=== PATIENT | male | born 1985 | race Caucasian/White ===

== ENCOUNTER 2016-10-08 16:57 | Emergency (ER) | payer MEDICAID ==
[~2016-10-08] VITALS: Ht 167.6 cm; Wt 60.0 kg
[~2016-10-08 16:57] MED LIST: BENZ100C70 PO; CEPH-443 PO; IBUP-1542 PO; KENC1 TOP; LORA10TA3 PO
[2016-10-08 17:08] VITALS: Ht 167.6 cm; Wt 60.0 kg
[2016-10-08 17:53] LABS: ADD SCAN DIFF NO
[2016-10-08 17:59] LABS: BASOPHILS % 0.4 % (0.0-2.0); EOSINOPHILS # 0.1 10^3/ul (0.0-0.5); EOSINOPHILS % 1.8 % (0.0-7.0); HEMATOCRIT 40.6 % (42.0-52.0); HEMOGLOBIN 13.6 g/dl (14.0-18.0); LYMPHOCYTES % 36.7 % (15.0-51.0); MEAN CORPUSCULAR HGB CONC 33.5 g/dl (32.0-37.0); MEAN CORPUSCULAR VOLUME 89.6 fl (82.0-101.0); MEAN PLATELET VOLUME 10.4 fl (7.4-10.4); MONOCYTE # 0.4 10^3/ul (0.3-0.9); MONOCYTES % 7.8 % (0.0-11.0); NEUTROPHIL # 2.9 10^3/ul (1.6-7.5); NEUTROPHILS % 53.1 % (39.0-77.0); PLATELET COUNT 255 10^3/UL (140-415); RED BLOOD COUNT 4.53 10^6/ul (4.70-6.10); RED CELL DISTRIBUTION WIDTH 12.5 % (11.5-14.5); WHITE BLOOD COUNT 5.5 10^3/ul (4.8-10.8)
[2016-10-08 18:18] LABS: CALCIUM 9.4 mg/dl (8.4-10.2); CREATININE 1.01 mg/dl (0.61-1.24); POTASSIUM 3.9 mmol/L (3.5-5.1)
--- NOTE | 2016-10-08 18:37 | RADRPT ---
PROCEDURE: XR Chest. CLINICAL INDICATION: Abdomen pain. TECHNIQUE: Single frontal view. COMPARISON: 10/09/2014. FINDINGS: The lungs are clear. The heart size is normal. There is no pleural effusion. There is no pneumothorax. IMPRESSION: 1. Normal chest radiograph. 2. No change from 10/09/2014. RPTAT: QQ .Abhi Shelton MD, MD Date Time Electronically viewed and signed by .Abhi Shelton MD, MD on 10/08/2016 18:37 .R/
[2016-10-08 18:48] LABS: THYROID STIMULATING HORMONE 1.05 MIU/L (0.465-4.680)
[2016-10-08] MEDS ORDERED: IBUP-1542 PO (18:48)
--- NOTE | 2016-10-08 18:50 | ERD ---
ER Documentation Chief Complaint Date/Time DATE: 10/08/16 TIME: 18:50 Chief Complaint pt bib family with c/o right knee pain and rash, x few months HPI 31-year-old man here with multiple complaints including recent right knee discomfort mostly while ambulating and flexing the knee although he denies redness or swelling. Patient denies recent trauma to the knee. He states he was recently treated with antibiotics for abrasion and skin irritation to the anterior right leg and states that rash is mostly resolved and wonders if the 2 are related. He states recently he's had increased dyspnea on exertion and daytime weakness and generalized increased fatigue. Patient denies new medications, no blood per rectum or melena, no weight loss, no fevers or chills , no headache or blurry vision, no paresis or paresthesias. Patient denies chest pain or abdominal pain. ROS All systems reviewed and are negative except as per history of present illness. Medications Home Meds Active Scripts Ibuprofen* (Motrin*) 600 Mg Tab, 600 MG PO Q8 for PAIN AND/OR INFLAMMATION, #30 TAB Prov:MARCUS ROBERT MD 10/08/16 Triamcinolone Acetonide (Triamcinolone Acetonide) 0.1% - 15 Gm Cream.gm., 1 APPLIC TOP BID, #1 TUB 1 Refill Prov:DAGMAR SWARTZ DO 06/26/16 Cephalexin* (Keflex*) 500 Mg Capsule, 500 MG PO QID for 5 Days, CAP Prov:DAGMAR SWARTZ DO 06/26/16 Ibuprofen* (Ibuprofen*) 600 Mg Tablet, 600 MG PO Q6H Y for PAIN AND OR ELEVATED TEMP, #30 TAB Prov:ELVIE ESTES NP 02/11/15 Loratadine* (Loratadine*) 10 Mg Tablet, 10 MG PO DAILY, #30 TAB Prov:ELVIE ESTES NP 02/11/15 Benzonatate* (Tessalon Perle*) 100 Mg Capsule, 100 MG PO Q8H Y for COUGH, #20 CAP Prov:ELVIE ESTES NP 02/11/15 Allergies Allergies: Coded Allergies: No Known Drug Allergies (Verified Allergy, Mild, 06/26/16) PMhx/Soc None History of Surgery: No Anesthesia Reaction: No Hx Neurological Disorder: No Hx Respiratory Disorders: No Hx Cardiac Disorders: No Hx Psychiatric Problems: No Hx Miscellaneous Medical Probl: No Hx Alcohol Use: No Hx Substance Use: No Hx Tobacco Use: No Smoking Status: Never smoker FmHx Family History: No diabetes Physical Exam Vitals Vital Signs Date Time Temp Pulse Resp B/P Pulse Ox O2 Delivery O2 Flow Rate FiO2 10/08/16 17:08 98.3 62 18 114/79 98 Physical Exam GENERAL: Well-developed, well-nourished, well-hydrated, in no apparent distress , looks nontoxic in appearance HEENT: Moist mucous membranes, pink conjunctiva, no cervical spine tenderness or step-off deformities, no goiter, no jaundice or icterus, extraocular movements intact without pain. No submandibular induration, and no pharyngeal erythema NEURO: Alert and oriented 3, cranial nerves II through XII intact bilaterally, pupils equal round reactive to light, no focal deficits or facial asymmetry, sensation intact distally Strength 5/5 in upper and lower extremities bilaterally CARDIAC: Regular rate and rhythm, no murmurs rubs or gallops LUNGS: Clear bilaterally no wheezing crackles or stridor ABDOMEN: Soft nontender, no guarding, no rigidity, no rebound, no psoas sign no obturator sign. Normoactive bowel sounds SKIN: Warm and dry to touch, no abrasions, contusions, or hematomas, no lacerations, no ecchymosis, no target lesions, and without ulcers EXTREMITIES: No clubbing cyanosis or edema, crepitus palpated to the right knee and not in the left with flexion and extension at the knee, calves are bilaterally symmetrical, no Homans sign, no popliteal cord sign. Distal pulses equal and bilateral PSYCH: Normal affect without agitation or irritability Result Diagram: 10/08/165 10/08/165 Results 24 hrs Laboratory Tests Test 10/08/16 17:45 White Blood Count 5.510^3/ul Red Blood Count 4.5310^6/ul Hemoglobin 13.6g/dl Hematocrit 40.6% Mean Corpuscular Volume 89.6fl Mean Corpuscular Hemoglobin 30.0pg Mean Corpuscular Hemoglobin Concent 33.5g/dl Red Cell Distribution Width 12.5% Platelet Count 09015^3/UL Mean Platelet Volume 10.4fl Neutrophils % 53.1% Lymphocytes % 36.7% Monocytes % 7.8% Eosinophils % 1.8% Basophils % 0.4% Nucleated Red Blood Cells % 0.0/100WBC Neutrophils # 2.910^3/ul Lymphocytes # 2.010^3/ul Monocytes # 0.410^3/ul Eosinophils # 0.110^3/ul Basophils # 0.010^3/ul Nucleated Red Blood Cells # 0.010^3/ul Sodium Level 136mmol/L Potassium Level 3.9mmol/L Chloride Level 102mmol/L Carbon Dioxide Level 27mmol/L Anion Gap 11 Blood Urea Nitrogen 25mg/dl Creatinine 1.01mg/dl Glucose Level 96mg/dl Calcium Level 9.4mg/dl Troponin I < 0.012ng/ml Thyroid Stimulating Hormone (TSH) 1.050MIU/L Free Thyroxine 0.97ng/dl Free Triiodothyronine (T3) pg/mL 5.00pg/ml Procedures/[facility] EKG performed, read by me revealed a sinus bradycardia 59 bpm, normal axis with a right ventricular conduction delay and a QRS duration of 108 ms, no concerning ST elevations or depressions noted. Chest X-ray 1V Interpreted by me: Soft Tissue: No acute abnormalities Bones: No acute abnormalities Mediastinum/Cardiac Silhouette/Lungs: No acute abnormalities CBC and electrolyte are normal, troponin was negative, thyroid panel was normal. Differential diagnoses considered, included but not limited to acute coronary syndrome, pulmonary embolism, aortic dissection, abdominal aortic aneurysm, sepsis, stroke, meningitis, encephalitis, pneumonia, appendicitis, cholecystitis , bowel obstruction, pyelonephritis, nephrolithiasis, cystitis, as well as metabolic, hematologic, and electrolyte abnormalities. As well as abscess, cellulitis, fractures, and dislocations. Patient feels much better at this time, and vital signs are normal, symptoms have improved. I did give strict instructions to return to the ED if symptoms continue or worsen, patient will otherwise follow-up with primary care physician. Patient understood instructions and agreed to plan. Departure Diagnosis: Primary Impression: Arthritis Additional Impression: SOB (shortness of breath) Condition: Good Patient Instructions: Coping with Shortness of Breath: Controlling Stress, Knee Sprain: Collateral Ligaments MARCUS ROBERT MD Oct 08, 2016 18:50
== END 2016-10-08 19:28 | disposition home or self-care (01) ==
LOC: FTE 16:57
DX: M17.9 Osteoarthritis of knee, unspecified (principal); R06.02 Shortness of breath
CPT/HCPCS: 36415; 71010; 80048; 84439; 84443; 84481; 84484; 85025; 93005; Z7502

== ENCOUNTER 2016-11-13 07:41 | Emergency (ER) | payer MEDICAID ==
[~2016-11-13] VITALS: Ht 167.6 cm; Wt 56.5 kg
[2016-11-13 07:44] VITALS: Ht 167.6 cm; Wt 56.5 kg
[2016-11-13] MEDS ORDERED: KENC1 TOP (08:21)
[2016-11-13] MEDS ORDERED: BEN25 PO (08:21)
[2016-11-13] MEDS ORDERED: CEPH-443 PO (08:21)
--- NOTE | 2016-11-13 13:59 | ERD ---
ER Documentation Chief Complaint Date/Time DATE: 11/13/16 TIME: 13:52 Chief Complaint rash on b/l legs and arms x 2 months HPI 31 year old male patient with no significant past medical history presents to the ED complaining of a rash on his right cadena area that started chronically on his cadena about 2 months ago. Denies any fever, chills, abdominal pain, nausea, vomiting, diarrhea, loss of sensation, loss of range of motion. Denies any exposure to pets, insects, new use of detergents, soaps or creams. States that he was seen here previously and was prescribed an antibiotic and cream which did work but he has been scratching the rash because it has been itchy. ROS All systems reviewed and are negative except as per history of present illness. Medications Home Meds Active Scripts Diphenhydramine Hcl* (Benadryl*) 25 Mg Cap, 25 MG PO Q6 Y for ITCHING/RASH, #30 TAB Prov:DANIEL HILL PA-C 11/13/16 Cephalexin* (Keflex*) 500 Mg Capsule, 500 MG PO QID for 7 Days, CAP Prov:DANIEL HILL PA-C 11/13/16 Triamcinolone Acetonide (Triamcinolone Acetonide) 0.1% - 15 Gm Cream.gm., 1 APPLIC TOP BID, #1 TUB Prov:DANIEL HILL PA-C 11/13/16 Ibuprofen* (Motrin*) 600 Mg Tab, 600 MG PO Q8 for PAIN AND/OR INFLAMMATION, #30 TAB Prov:MARCUS ROBERT MD 10/08/16 Triamcinolone Acetonide (Triamcinolone Acetonide) 0.1% - 15 Gm Cream.gm., 1 APPLIC TOP BID, #1 TUB 1 Refill Prov:DAGMAR SWARTZ DO 06/26/16 Cephalexin* (Keflex*) 500 Mg Capsule, 500 MG PO QID for 5 Days, CAP Prov:DAGMAR SWARTZ DO 06/26/16 Ibuprofen* (Ibuprofen*) 600 Mg Tablet, 600 MG PO Q6H Y for PAIN AND OR ELEVATED TEMP, #30 TAB Prov:ELVIE ESTES NP 02/11/15 Loratadine* (Loratadine*) 10 Mg Tablet, 10 MG PO DAILY, #30 TAB Prov:ELVIE ESTES MEHUL [employer] 02/11/15 Benzonatate* (Tessalon Perle*) 100 Mg Capsule, 100 MG PO Q8H Y for COUGH, #20 CAP Prov:ELVIE ESTESEnoc [employer] ARCHITECT 02/11/15 Allergies Allergies: Coded Allergies: No Known Drug Allergies (Verified Allergy, Mild, 06/26/16) PMhx/Soc Medical and Surgical Hx: pt denies Medical Hx, pt denies Surgical Hx History of Surgery: No Anesthesia Reaction: No Hx Neurological Disorder: No Hx Respiratory Disorders: No Hx Cardiac Disorders: No Hx Psychiatric Problems: No Hx Miscellaneous Medical Probl: No Hx Alcohol Use: No Hx Substance Use: No Hx Tobacco Use: No Smoking Status: Never smoker Physical Exam Vitals Vital Signs Date Time Temp Pulse Resp B/P Pulse Ox O2 Delivery O2 Flow Rate FiO2 11/13/16 07:44 97.6 59 18 127/84 99 Physical Exam Const: [id number], well-nourished. In no acute distress. Head: Atraumatic, normocephalic Eyes: Normal Conjunctiva without injection. No purulent discharge. PERRL. EOMI ENT: Normal external ear. Ear canal without erythema. Tympanic membrane pearly webber without effusion or bulging. Nasal canal clear with normal turbinates. Moist oropharynx without tonsillar exudates. Non-erythematous pharynx. Uvula midline. No drooling. No trismus. Neck: Full range of motion. No meningismus. No cervical lymphadenopathy. Resp: Clear to auscultation bilaterally. No wheezing, rhonchi, rales, or crackles. No accessory muscle use. No retractions. Cardio: Regular rate and rhythm. No murmurs, rubs or gallops. Abd: Soft, non tender, non distended. Normal bowel sounds. No palpable masses. No rebound tenderness. No guarding. Skin: No petechiae or rashes. Eczematous rash noted on the right cadena region. No purulent discharge. No erythema. No edema. Back: No midline tenderness. No CVA tenderness. Ext: No cyanosis, or edema. Neur: Awake and alert. Psych: Normal Mood and Affect Procedures/MDM 31-year-old male patient with no significant past medical history presents to the ED complaining of a chronic rash on his right cadena. Patient is afebrile and nontoxic-appearing. Patient has normal vital signs. Patient's rash is likely eczematous and chronic. Due to its slightly weeping appearance from patient is appropriate for outpatient antibiotics. Low suspicion for MRSA infection, cellulitis, or other emergent conditions. Low suspicion for scabies, SJS/TEN, erythema multiforme, sepsis, cellulitis, necrotizing fascitis, gangrene , meningococcemia or other emergent conditions. Discharge medications: Benadryl, Keflex, Triamcinolone Follow up with primary care physician in 1-2 days. Instructed patient to return to the ED sooner for any worsening symptoms. Patient's questions were answered. Patient understood and agreed with discharge plan. Patient discharged stable. Departure Diagnosis: Primary Impression: Rash and other nonspecific skin eruption Condition: Stable Patient Instructions: Self-Care for Skin Rashes, Atopic Dermatitis (Eczema) Referrals: [facility] Usted se garcia hecho un examen mdico de control que le indica que no est en daisy condicin que requiera tratamiento urgente en el Departamento de Emergencia. Un estudio ms profundo y el tratamiento de campoverde condicin pueden esperar sin ningn riesgo hasta que usted sea atendida/o en el consultorio de campoverde mdico o daisy cl jay. Es responsabilidad suya arreglar daisy otto para el seguimiento del ricco. MANEJO DE CONDICIONES NO URGENTES EN EL FUTURO 1) Si usted tiene un mdico de atencin primaria: Usted debera llamar a campoverde mdico de atencin primaria antes de venir al departamento de emergencia. Despus de las horas de consultorio, campoverde doctor o campoverde asociado/a est disponible por telfono. El mdico o enfermero de glenda en el servicio telefnico puede asesorarle por keyon medio para atender el problema, o ricco contrario se puede programar daisy otto. 2) Si usted no tiene un mdico de atencin primaria: Llame al mdico o clnica de referencia que aparece abajo yessi las horas de consultorio para hacer daisy otto para que le vean. CLINICAS: [place] [address] [phone] [facility] [phone] [facility] [phone] [place] [address] [phone] [place] [address] [phone] [place] [id number] [phone] [facility]. [facility] () fabricio se garcia hecho un examen mdico de control que le indica que no est en daisy condicin que requiera tratamiento urgente en el Departamento de Emergencia. Un estudio ms profundo y el tratamiento de campoverde condicin pueden esperar sin ningn riesgo hasta que ted sea atendida/o en el consultorio de campoverde mdico o daisy cl jay. Es responsabilidad suya arreglar daisy otto para el seguimiento del ricco. MANEJO DE CONDICIONES NO URGENTES EN EL FUTURO 1) Si usted tiene un mdico de atencin primaria: Dago debera llamar a campoverde mdico de atencin primaria antes de venir al departamento de emergencia. Despus de las horas de consultorio, campoverde doctor o campoverde asociado/a est disponible por telfono. El mdico o enfermero de glenda en el servicio telefnico puede asesorarle por keyon medio para atender el problema, o ricco contrario se puede programar daisy otto. 2) Si usted no tiene un mdico de atencin primaria: Llame al mdico o condado institucions de referencia que aparece abajo yessi las horas de consultorio para hacer daisy otto para que le vean. SI USTED NO PUEDE PAGAR PARA TANYA UN MEDICO puede ir a: [facility] [address] [place] [address] [facility] [address] [place] [address] [facility] [address] [place] [address] PARA [facility] [address] [place], [place] [id number] Additional Instructions: La medicina que se le recet puede causarle sueo.NO DEBE MANEJAR NI OPERAR MAQUINARIAS PELIGROSAS mientras esta tomando esta medicina! Llame al doctor y wilmer daisy OTTO PARA DENTRO DE 1-2 RIVERA para daisy derivacin a un dermatlogo.Dgale a la secretaria que nosotros le instruimos hacer esta otto.Avise o llame si campoverde condicin se empeora antes de la otto. Regresa aqui si peor o no mejor. DANIEL HILL PA-C November 13, 2016 13:59
== END 2016-11-13 09:00 | disposition home or self-care (01) ==
LOC: FTE 07:41
DX: R21 Rash and other nonspecific skin eruption (principal)
CPT/HCPCS: 99284

== ENCOUNTER 2016-12-13 20:06 | Emergency (ER) | payer MEDICAID ==
[~2016-12-13] VITALS: Ht 172.7 cm; Wt 58.5 kg
[~2016-12-13 20:06] MED LIST changes: +BEN25 PO
[2016-12-13 20:12] VITALS: Ht 172.7 cm; Wt 58.5 kg
[2016-12-13] MEDS ORDERED: AZIT250T94 PO (22:18)
[2016-12-13] MEDS ORDERED: IBUP-1542 PO (22:19)
[2016-12-13] MEDS ORDERED: BENZ100C70 PO (22:19)
--- NOTE | 2016-12-13 22:29 | ERD ---
ER Documentation Chief Complaint Date/Time DATE: 12/13/16 TIME: 22:21 Chief Complaint Productive cough for 2 weeks and fever since yesterday HPI Patient is a 31-year-old male who presents to the emergency department with a productive cough 2 weeks. Patient does report intermittent fevers at nighttime. He states his temperature was 99 Fahrenheit yesterday. Patient took Tylenol at that time. Patient states his cough has occasional yellow green phlegm production. Patient states his cough is worse at night, making it difficult for him to sleep. Patient reports trying OTC cough syrups without any alleviation of symptoms. Patient does report chest pain only when coughing. He denies any chest pain at rest. Patient denies any shortness of breath, left upper extremity pain or LOC. Patient denies any rhinorrhea, sore throat, ear pain, nausea, vomiting abdominal pain. Patient denies any recent travel, sick contacts. ROS All systems reviewed and are negative except as per history of present illness. Medications Home Meds Active Scripts Benzonatate* (Tessalon Perle*) 100 Mg Capsule, 100 MG PO Q8H Y for COUGH, #20 CAP Prov:WALE BELLO PA-C 12/13/16 Ibuprofen* (Motrin*) 600 Mg Tab, 600 MG PO Q6, #30 TAB Prov:WALE BELLO PA-C 12/13/16 Azithromycin* (Zithromax*) 250 Mg Tablet, 250 MG PO .ZPACK DIRECTED, #6 TAB TAKE 500 MG (2 TABS) THE FIRST DAY THEN 250 MG (1 TAB) DAYS 2-5 Prov:WALE BELLO PA-C 12/13/16 Diphenhydramine Hcl* (Benadryl*) 25 Mg Cap, 25 MG PO Q6 Y for ITCHING/RASH, #30 TAB Prov:DANIEL HILL PA-C 11/13/16 Cephalexin* (Keflex*) 500 Mg Capsule, 500 MG PO QID for 7 Days, CAP Prov:DANIEL HILL PA-C 11/13/16 Triamcinolone Acetonide (Triamcinolone Acetonide) 0.1% - 15 Gm Cream.gm., 1 APPLIC TOP BID, #1 TUB Prov:DANIEL HILL PA-C 11/13/16 Ibuprofen* (Motrin*) 600 Mg Tab, 600 MG PO Q8 for PAIN AND/OR INFLAMMATION, #30 TAB Prov:MARCUS ROBERT MD 10/08/16 Triamcinolone Acetonide (Triamcinolone Acetonide) 0.1% - 15 Gm Cream.gm., 1 APPLIC TOP BID, #1 TUB 1 Refill Prov:DAGMAR SWARTZ DO 06/26/16 Cephalexin* (Keflex*) 500 Mg Capsule, 500 MG PO QID for 5 Days, CAP Prov:DAGMAR SWARTZ DO 06/26/16 Ibuprofen* (Ibuprofen*) 600 Mg Tablet, 600 MG PO Q6H Y for PAIN AND OR ELEVATED TEMP, #30 TAB Prov:ELVIE ESTES NP 02/11/15 Loratadine* (Loratadine*) 10 Mg Tablet, 10 MG PO DAILY, #30 TAB Prov:ELVIE ESTES NP 02/11/15 Benzonatate* (Tessalon Perle*) 100 Mg Capsule, 100 MG PO Q8H Y for COUGH, #20 CAP Prov:ELVIE ESTES NP 02/11/15 Allergies Allergies: Coded Allergies: No Known Drug Allergies (Verified Allergy, Mild, 12/13/16) PMhx/Soc Medical and Surgical Hx: pt denies Medical Hx, pt denies Surgical Hx History of Surgery: No Anesthesia Reaction: No Hx Neurological Disorder: No Hx Respiratory Disorders: No Hx Cardiac Disorders: No Hx Psychiatric Problems: No Hx Miscellaneous Medical Probl: No Hx Alcohol Use: No Hx Substance Use: No Hx Tobacco Use: No FmHx Family History: diabetes Physical Exam Vitals Vital Signs Date Time Temp Pulse Resp B/P Pulse Ox O2 Delivery O2 Flow Rate FiO2 12/13/16 20:12 98.1 70 20 132/85 99 Physical Exam GENERAL: Well-developed, well-nourished male. Appears in no acute distress. HEAD: Normocephalic, atraumatic. No deformities or ecchymosis. EYE: Pupils equal, round, and reactive to light. EOMs intact. No conjunctival erythema. No eye discharge. ENT: External ear without any masses or tenderness. TM visualized bilaterally, non-erythematous, non-bulging. Nasal mucosa pink with no discharge. Oropharynx is pink without any tonsillar erythema or exudates. No uvula deviation. No kissing tonsils. NECK: Supple. No meningismus. Normal ROM of the neck. CHEST: Tender to palpation of the mid sternum. Pain is reproducible. LUNG: Clear to auscultation bilaterally. No rhonchi, wheezing, rales or coarse breath sounds. HEART: Regular rate and rhythm. No murmurs, rubs or gallops. BACK: No midline tenderness. EXTREMITIES: Equal pulses bilaterally. No peripheral clubbing, cyanosis or edema. No unilateral leg swelling. NEUROLOGIC: Alert and oriented to person, place and time. Moving all four extremities. 5/5 strength in all extremities. Normal speech. Steady gait. SKIN: Normal color. Warm and dry. No rashes or lesions. Procedures/MDM MEDICAL DECISION MAKING: This is a 31-year-old male presents with a productive cough 2 weeks and intermittent fevers. Vital signs were reviewed. Patient was afebrile. Patient was not hypoxic. ENT exam was normal. Lung exam was normal. Given these findings, the patient's presentation is most consistent with acute bronchitis. I have a much lower clinical concern for pneumonia, meningitis, sinusitis, otitis externa, acute otitis media, strep pharyngitis, epiglottitis or peritonsillar abscess. Given that the patient's symptoms have been ongoing for 2 weeks and he has tried OTC medication and had no relief of symptoms, I would give the patient a course of antibiotics. PRESCRIPTIONS: Ibuprofen, Tessalon perles, Zithromax DISCHARGE: At this time, patient is stable for discharge and outpatient management. Supportive therapies such as OTC throat lozenges, salt water gurgles, popsicles and jello discussed. I have instructed the patient to follow-up with his/her primary care physician in 1-2 days. I have instructed the patient to promptly return to the ER for any new or worsening symptoms including increased pain, swelling, fever, nausea, vomiting, weakness or difficulty breathing. The patient and/or family expressed understanding of and agreement with this plan. All questions were answered. Home care instructions were provided. Departure Diagnosis: Primary Impression: Acute bronchitis Bronchitis organism: unspecified organism Qualified Code: J20.9 - Acute bronchitis, unspecified organism Condition: Stable Patient Instructions: Acute Bronchitis Referrals: [facility] YOU HAVE RECEIVED A MEDICAL SCREENING EXAM AND THE RESULTS INDICATE THAT YOU DO NOT HAVE A CONDITION THAT REQUIRES URGENT TREATMENT IN THE EMERGENCY DEPARTMENT. FURTHER EVALUATION AND TREATMENT OF YOUR CONDITION CAN WAIT UNTIL YOU ARE SEEN IN YOUR DOCTORS OFFICE WITHIN THE NEXT 1-2 DAYS. IT IS YOUR RESPONSIBILITY TO MAKE AN APPOINTMENT FOR FOLOW-UP CARE. IF YOU HAVE A PRIMARY DOCTOR --you should call your primary doctor and schedule an appointment IF YOU DO NOT HAVE A PRIMARY DOCTOR YOU CAN CALL OUR PHYSICIAN REFERRAL HOTLINE AT IF YOU CAN NOT AFFORD TO SEE A PHYSICIAN YOU CAN CHOSE FROM THE FOLLOWING [facility] [address] [facility] [address] [facility] [facility] [address] [facility] [address] [facility] [address] [facility]. [facility] [address] [facility]. [facility] YOU HAVE RECEIVED A MEDICAL SCREENING EXAM AND THE RESULTS INDICATE THAT YOU DO NOT HAVE A CONDITION THAT REQUIRES URGENT TREATMENT IN THE EMERGENCY DEPARTMENT. FURTHER EVALUATION AND TREATMENT OF YOUR CONDITION CAN WAIT UNTIL YOU ARE SEEN IN YOUR DOCTORS OFFICE WITHIN THE NEXT 1-2 DAYS. IT IS YOUR RESPONSIBILITY TO MAKE AN APPOINTMENT FOR FOLOW-UP CARE. IF YOU HAVE A PRIMARY DOCTOR --you should call your primary doctor and schedule and appointment IF YOU DO NOT HAVE A PRIMARY DOCTOR YOU CAN CALL OUR PHYSICIAN REFERRAL HOTLINE AT . IF YOU CAN NOT AFFORD TO SEE A PHYSICIAN YOU CAN CHOSE FROM THE FOLLOWING COUNTS INCLUDE 234 BEDS AT THE [facility] INSTITUTIONS: [facility] [address] [place] [address] [facility] [address] [place] [address] [facility] [address] [place] [address] Additional Instructions: Call your primary care doctor TOMORROW for an appointment during the next 1-2 days.See the doctor sooner or return here if your condition worsens before your appointment time. WALE BELLO PA-C Dec 13, 2016 22:29
[2016-12-13 22:47] VITALS: BP 139/92; PULSE 60; RESP 18; TEMP 98.1
== END 2016-12-13 22:48 | disposition home or self-care (01) ==
LOC: FTE 20:06
DX: J20.9 Acute bronchitis, unspecified (principal)
CPT/HCPCS: 99284

== ENCOUNTER 2017-02-28 18:01 | Emergency (ER) | payer MEDICAID ==
[~2017-02-28] VITALS: Ht 170.2 cm; Wt 57.5 kg
[~2017-02-28 18:01] MED LIST changes: +AZIT250T94 PO; -KENC1 TOP; +TRIA15CR55 TOP
[2017-02-28 18:19] VITALS: Ht 170.2 cm; Wt 57.5 kg
[2017-02-28] MEDS ORDERED: KETOROLAC 30 MG INJ IM STA (20:46)
[2017-02-28] MEDS ORDERED: BENZ200C43 PO (20:47)
[2017-02-28] MEDS ORDERED: NAPR-260 PO (20:48)
--- NOTE | 2017-02-28 21:18 | ERD ---
ER Documentation Chief Complaint Date/Time DATE: 02/28/17 TIME: 21:13 Chief Complaint HEADACHE X2 DAYS, COUGH X2 WEEKS HPI This patient is a 31-year-old male presenting to the emergency department with complaints of ongoing intermittently for the past 2 weeks. The patient is also had right-sided headache ongoing intermittently for the past 24 hours. The patient does have a history of headaches and cough in the past. He was recently treated with a Z-Perez for bronchitis. Tylenol and ibuprofen temporarily relieve his symptoms. Symptoms are overall intermittent and are not improving. He denies neck pain, fevers, urinary symptoms, nausea, vomiting , diarrhea, or other symptoms currently. ROS All systems reviewed and are negative except as per history of present illness. Medications Home Meds Active Scripts Naproxen* (Naprosyn*) 500 Mg Tablet, 500 MG PO BID Y for PAIN AND/OR INFLAMMATION, #30 TAB Prov:ESTHER FOX PA-C 02/28/17 Benzonatate* (Benzonatate*) 200 Mg Capsule, 200 MG PO TID Y for COUGH, #20 CAP Prov:ESTHER FOX PA-C 02/28/17 Benzonatate* (Tessalon Perle*) 100 Mg Capsule, 100 MG PO Q8H Y for COUGH, #20 CAP Prov:WALE BELLO PA-C 12/13/16 Ibuprofen* (Motrin*) 600 Mg Tab, 600 MG PO Q6, #30 TAB Prov:WALE BELLO PA-C 12/13/16 Azithromycin* (Zithromax*) 250 Mg Tablet, 250 MG PO .HANNAHCK DIRECTED, #6 TAB TAKE 500 MG (2 TABS) THE FIRST DAY THEN 250 MG (1 TAB) DAYS 2-5 Prov:WALE BELLO PA-C 12/13/16 Diphenhydramine Hcl* (Benadryl*) 25 Mg Cap, 25 MG PO Q6 Y for ITCHING/RASH, #30 TAB Prov:DANIEL HILL PA-C 11/13/16 Cephalexin* (Keflex*) 500 Mg Capsule, 500 MG PO QID for 7 Days, CAP Prov:DANIEL HILL PA-C 11/13/16 Triamcinolone Acetonide (Triamcinolone Acetonide) 0.1% - 15 Gm Cream.gm., 1 APPLIC TOP BID, #1 TUB Prov:DANIEL HILL PA-C 11/13/16 Ibuprofen* (Motrin*) 600 Mg Tab, 600 MG PO Q8 for PAIN AND/OR INFLAMMATION, #30 TAB Prov:MARCUS ROBERT MD 10/08/16 Triamcinolone Acetonide (Triamcinolone Acetonide) 0.1% - 15 Gm Cream.gm., 1 APPLIC TOP BID, #1 TUB 1 Refill Prov:MAXIMEDAGMAR DO 06/26/16 Cephalexin* (Keflex*) 500 Mg Capsule, 500 MG PO QID for 5 Days, CAP Prov:MAXIMEDAGMAR DO 06/26/16 Ibuprofen* (Ibuprofen*) 600 Mg Tablet, 600 MG PO Q6H Y for PAIN AND OR ELEVATED TEMP, #30 TAB Prov:ELVIE ESTES NP 02/11/15 Loratadine* (Loratadine*) 10 Mg Tablet, 10 MG PO DAILY, #30 TAB Prov:ELVIE ESTES NP 02/11/15 Benzonatate* (Tessalon Perle*) 100 Mg Capsule, 100 MG PO Q8H Y for COUGH, #20 CAP Prov:ELVIE ESTES NP 02/11/15 Allergies Allergies: Coded Allergies: No Known Drug Allergies (Verified Allergy, Mild, 12/13/16) PMhx/Soc History of Surgery: No Anesthesia Reaction: No Hx Neurological Disorder: No Hx Respiratory Disorders: No Hx Cardiac Disorders: No Hx Psychiatric Problems: No Hx Miscellaneous Medical Probl: No Hx Alcohol Use: No Hx Substance Use: No Hx Tobacco Use: No Smoking Status: Never smoker Physical Exam Vitals Vital Signs Date Time Temp Pulse Resp B/P Pulse Ox O2 Delivery O2 Flow Rate FiO2 02/28/17 18:19 98.9 65 16 111/73 98 Physical Exam Const: Nontoxic, well-appearing male in no acute distress. Head: Atraumatic Eyes: Normal Conjunctiva ENT: Normal External Ears, Nose and Mouth. Neck: Full range of motion..~ No meningismus. Resp: Clear to auscultation bilaterally Cardio: Regular rate and rhythm, no murmurs Abd: Soft, non tender, non distended. Normal bowel sounds Skin: No petechiae or rashes Back: No midline or flank tenderness Ext: No cyanosis, or edema Neur: Awake and alert Psych: Normal Mood and Affect Results 24 hrs Current Medications Medications (Trade) Dose Ordered Sig/Rebecca Route PRN Reason Start Time Stop Time Status Last Admin Dose Admin Ketorolac Tromethamine (Toradol) 30 mg ONCE STAT IM 02/28/17 20:46 02/28/17 20:47 DC 02/28/17 20:52 Procedures/MDM 31-year-old male with multiple visits to this emergency department with complaints of cough and other various problems presents to the emergency department with complaints of cough and headache intermittently. The patient has tried Tylenol and ibuprofen at home without relief of symptoms Physical examination was unremarkable and showed no signs of nuchal rigidity, meningismus , neurological deficits. Lung examination was unremarkable and showed no crackles, wheezes, rales, rhonchi, or retractions. The patient was given IM Toradol in the department for his headache symptoms and he was feeling improved prior to discharge. I have low suspicion currently for any pneumonia, bronchitis, sepsis, meningitis, TIA, CVA, status migrainosus, intractable headache, or other emergent conditions. The patient's diagnoses include cough with unclear etiology and migraine headache. The patient is stable for outpatient management with a prescription for benzonatate and naproxen. The patient is to return immediately for any new or worsening symptoms. He is to have close follow-up with his primary care physician. Departure Diagnosis: Primary Impression: Headache Headache type: unspecified Headache chronicity pattern: acute headache Intractability: not intractable Qualified Code: R51 - Acute nonintractable headache, unspecified headache type Additional Impression: Cough Condition: Fair Patient Instructions: Self-Care for Headaches, Cough, Chronic, Uncertain Cause , (Adult) [facility]errals[facility] Usted se garcia hecho un examen mdico de control que le indica que no est en daisy condicin que requiera tratamiento urgente en el Departamento de Emergencia. Un estudio ms profundo y el tratamiento de campoverde condicin pueden esperar sin ningn riesgo hasta que usted sea atendida/o en el consultorio de campoverde mdico o daisy cl jay. Es responsabilidad suya arreglar daisy patricia para el seguimiento del ricco. MANEJO DE CONDICIONES NO URGENTES EN EL FUTURO 1) Si usted tiene un mdico de atencin primaria: Usted debera llamar a campoverde mdico de atencin primaria antes de venir al departamento de emergencia. Despus de las horas de consultorio, campoverde doctor o campoverde asociado/a est disponible por telfono. El mdico o enfermero de glenda en el servicio telefnico puede asesorarle por keyon medio para atender el problema, o ricco contrario se puede programar daisy patricia. 2) Si usted no tiene un mdico de atencin primaria: Llame al mdico o clnica de referencia que aparece abajo yessi las horas de consultorio para hacer daisy patricia para que le vean. CLINICAS: [place] [id number] [phone] [facility] [phone] [facility] [phone] [facility] [phone] [facility]. [place] [phone] [facility]. [phone] Additional Instructions: No mas mejor en 2-3 barbosa, regresar. Mas peor en 24 horas, regresear rapidamente. Ir a doctor primario in 5-7 barbosa. Usar instrucciones cuando malgorzata medicamento. ESTHER FOX PA-C Feb 28, 2017 21:18
== END 2017-02-28 20:49 | disposition home or self-care (01) ==
LOC: FTE 18:01
DX: R51 Headache (principal); R05 Cough
CPT/HCPCS: 96372; J1885; Z7502

== ENCOUNTER 2017-08-08 22:06 | Emergency (ER) | END 2017-08-09 01:02 | disposition left against medical advice (07) ==

== ENCOUNTER 2017-08-21 06:30 | Emergency (ER) | END 2017-08-21 08:44 | disposition home or self-care (01) ==

== ENCOUNTER 2018-06-15 16:34 | Emergency (ER) | END 2018-06-15 18:08 | disposition home or self-care (01) ==

== ENCOUNTER 2018-10-30 05:35 | Inpatient (IN) | payer MEDICAID ==
[~2018-10-30] VITALS: Ht 167.6 cm; Wt 57.4 kg
[2018-10-30] VITALS (18 sets, daily range): BP systolic 104–143; BP diastolic 71–98; PULSE 50–78; RESP 17–18; Ht 167.6 cm; Wt 57.4 kg
[~2018-10-30 05:35] MED LIST changes: +AZIT250T PO; -AZIT250T94 PO; +BENZ-6 PO; -BENZ100C70 PO; +BENZ200C68 PO; +CETI10CA PO; +FLUT9.9S NASAL; +GUAI-106 PO; +GUAI5SYR2 PO; +NAPR-985 PO
[2018-10-30] MEDS ORDERED: KETOROLAC 30 MG INJ IV STA (06:06)
[2018-10-30] MEDS ORDERED: ONDANSETRON 4 MG INJ IV STA (06:06)
[2018-10-30] MEDS ORDERED: SOD CHLORIDE 0.9% 1,000 ML IV STA (06:06)
[2018-10-30] MEDS ORDERED: IOHEXOL 300MG/ML 150 ML BTL ONE (07:28)
[2018-10-30] MEDS ORDERED: SOD CHLORIDE 0.9% 100 ML ONE (07:28)
[2018-10-30] MEDS ORDERED: morphine 4 MG/ML VIAL IV STA (08:13)
[2018-10-30] MEDS ORDERED: PIPER-TAZO 3.375 GM IV (PMX) 100 ML IVPB ONE (08:30)
--- NOTE | 2018-10-30 10:15 | ERD ---
ER Documentation Chief Complaint Chief Complaint ABD PAIN, NO OTHER S/S X1DAY HPI 33-year-old male presenting with abdominal pain x1 day. Patient states that he had some periumbilical pain and pain to the right lower quadrant. His last bowel was yesterday. Denies any vomiting or fevers. Took Tylenol yesterday for pain medication. Has never had this pain before. Denies medical problems. NKDA. Surgical history denies. Social history denies ROS All systems reviewed and are negative except as per history of present illness. Medications Home Meds Discontinued Scripts Fluticasone Propionate (Flonase Allergy Relief) 9.9 Ml [place].susp, 2 SPRAY NASAL DAILY, #1 BOTTLE TO EACH NOSTRIL Prov:DUGLAS LUCAS PA-C 06/15/18 Cetirizine Hcl* (Zyrtec*) 10 Mg Capsule, 10 MG PO DAILY, #10 TAB.CHEW Prov:DUGLAS LUCAS PA-C 06/15/18 Ibuprofen* (Motrin*) 600 Mg Tab, 600 MG PO Q6, #30 TAB Prov:DUGLAS LUCAS PA-C 06/15/18 Guaifenesin-Dextromethorphan* (Robitussin* DM) 100MG/10MG/5ML Syrup, 10 ML PO Q6H PRN for COUGH for 5 Days, ML Prov:DUGLAS LUCAS PA-C 06/15/18 Ibuprofen* (Motrin*) 600 Mg Tab, 600 MG PO Q6, #15 TAB Prov:NASRIN GRANT MD 08/21/17 Guaifenesin/Pseudoephedrne HCl (Mucinex D ER 1,200-120 mg Tab) 1 Each Tab.er.12h, 1 EACH PO BID, #14 TAB Prov:NASRIN GRANT MD 08/21/17 Azithromycin* (Zithromax*) 250 Mg Tablet, 250 MG PO .HERBIE DIRECTED, #6 TAB TAKE 500 MG (2 TABS) THE FIRST DAY THEN 250 MG (1 TAB) DAYS 2-5 Prov:NASRIN GRANT MD 08/21/17 Naproxen* (Naprosyn*) 500 Mg Tablet, 500 MG PO BID PRN for PAIN AND/OR INFLAMMATION, #30 TAB Prov:ESTHER FOX PA-C 02/28/17 Benzonatate* (Benzonatate*) 200 Mg Capsule, 200 MG PO TID PRN for COUGH, #20 CAP Prov:ESTHER FOX PA-C 02/28/17 Benzonatate* (Tessalon Perle*) 100 Mg Capsule, 100 MG PO Q8H PRN for COUGH, #20 CAP Prov:WALE BLELO PA-C 12/13/16 Ibuprofen* (Motrin*) 600 Mg Tab, 600 MG PO Q6, #30 TAB Prov:WALE BELLO PA-C 12/13/16 Azithromycin* (Zithromax*) 250 Mg Tablet, 250 MG PO .HANNAHCK DIRECTED, #6 TAB TAKE 500 MG (2 TABS) THE FIRST DAY THEN 250 MG (1 TAB) DAYS 2-5 Prov:WALE BELLO PA-C 12/13/16 Diphenhydramine Hcl* (Benadryl*) 25 Mg Cap, 25 MG PO Q6 PRN for ITCHING/RASH, #30 TAB Prov:DANIEL HILL PA-C 11/13/16 Cephalexin* (Keflex*) 500 Mg Capsule, 500 MG PO QID for 7 Days, CAP Prov:DANIEL HILL PA-C 11/13/16 Triamcinolone Acetonide (Triamcinolone Acetonide) 0.1% - 15 Gm Cream.gm., 1 APPLIC TOP BID, #1 TUB Prov:DANIEL HILL PA-C 11/13/16 Ibuprofen* (Motrin*) 600 Mg Tab, 600 MG PO Q8 for PAIN AND/OR INFLAMMATION, #30 TAB Prov:MARCUS ROBERT MD 10/08/16 Triamcinolone Acetonide (Triamcinolone Acetonide) 0.1% - 15 Gm Cream.gm., 1 APPLIC TOP BID, #1 TUB 1 Refill Prov:MAXIME,DAGMAR DO 06/26/16 Cephalexin* (Keflex*) 500 Mg Capsule, 500 MG PO QID for 5 Days, CAP Prov:MAXIME,DAGMAR DO 06/26/16 Ibuprofen* (Ibuprofen*) 600 Mg Tablet, 600 MG PO Q6H PRN for PAIN AND OR ELEVATED TEMP, #30 TAB Prov:ELVIE ESTES FITNESS TECHNICIAN 02/11/15 Loratadine* (Loratadine*) 10 Mg Tablet, 10 MG PO DAILY, #30 TAB Prov:ELVIE ESTES FITNESS TECHNICIAN 02/11/15 Benzonatate* (Tessalon Perle*) 100 Mg Capsule, 100 MG PO Q8H PRN for COUGH, #20 CAP Prov:ELVIE ESTES FITNESS TECHNICIAN 02/11/15 Allergies Allergies: Coded Allergies: No Known Drug Allergies (Verified Allergy, Mild, 10/30/18) PMhx/Soc Medical and Surgical Hx: pt denies Medical Hx, pt denies Surgical Hx History of Surgery: No Anesthesia Reaction: No Hx Neurological Disorder: No Hx Respiratory Disorders: No Hx Cardiac Disorders: No Hx Psychiatric Problems: No Hx Miscellaneous Medical Probl: No Hx Alcohol Use: No Hx Substance Use: No Hx Tobacco Use: No Smoking Status: Never smoker FmHx Family History: No diabetes, No coronary disease, No other Physical Exam Vitals Vital Signs Date Temp Pulse Resp B/P (MAP) Pulse Ox O2 O2 Flow FiO2 Time Delivery Rate 10/30/18 70 17 118/86 100 Room Air 09:30 (97) 10/30/18 98.9 61 17 123/82 100 Room Air 08:51 (96) 10/30/18 98.7 64 19 122/82 100 05:37 (95) Physical Exam GENERAL: The patient is well-appearing, well-nourished, in no acute distress HEENT: Atraumatic. Conjunctivae are pink. Pupils equal, round, and reactive to light. There is no scleral icterus. Tympanic membranes clear bilaterally. Oropharynx clear. NECK: C-spine is soft and supple. There is no meningismus. There is no cervi [place] lymphadenopathy. CHEST: Clear to auscultation bilaterally. There are no rales, wheezes or rhon chi. HEART: Regular rate and rhythm. No murmurs, clicks, rubs or gallops. ABDOMEN: Full active bowel sounds. No distention. Tender to palpation in the umbilicus region and extending to the right lower quadrant. No rebound tenderness. Result Diagram: 10/30/18 0613 10/30/18 0613 Results 24 hrs Laboratory Tests Test 10/30/18 06:13 White Blood Count 9.0 10^3/ul Red Blood Count 4.85 10^6/ul Hemoglobin 14.6 g/dl Hematocrit 43.7 % Mean Corpuscular Volume 90.1 fl Mean Corpuscular Hemoglobin 30.1 pg Mean Corpuscular Hemoglobin Concent 33.4 g/dl Red Cell Distribution Width 12.7 % Platelet Count 270 10^3/UL Mean Platelet Volume 10.8 fl Immature Granulocytes % 0.200 % Neutrophils % 73.5 % Lymphocytes % 17.4 % Monocytes % 7.3 % Eosinophils % 1.4 % Basophils % 0.2 % Nucleated Red Blood Cells % 0.0 /100WBC Immature Granulocytes # 0.020 10^3/ul Neutrophils # 6.6 10^3/ul Lymphocytes # 1.6 10^3/ul Monocytes # 0.7 10^3/ul Eosinophils # 0.1 10^3/ul Basophils # 0.0 10^3/ul Nucleated Red Blood Cells # 0.0 10^3/ul Prothrombin Time 12.5 Sec Prothrombin Time Ratio 1.0 INR International Normalized Ratio 0.92 Activated Partial Thromboplast Time 26.5 Sec Urine Color STRAW Urine Clarity CLEAR Urine pH 6.0 Urine Specific [place] 1.017 Urine Ketones NEGATIVE mg/dL Urine Nitrite NEGATIVE mg/dL Urine Bilirubin NEGATIVE mg/dL Urine Urobilinogen 1+ mg/dL Urine Leukocyte Esterase NEGATIVE Petra/ul Urine Hemoglobin NEGATIVE mg/dL Urine Glucose NEGATIVE mg/dL Urine Total Protein NEGATIVE mg/dl Sodium Level 143 mmol/L Potassium Level 4.3 mmol/L Chloride Level 108 mmol/L Carbon Dioxide Level 27 mmol/L Anion Gap 8 Blood Urea Nitrogen 22 mg/dl Creatinine 1.05 mg/dl Est Glomerular Filtrat Rate mL/min > 60 mL/min Glucose Level 101 mg/dl Calcium Level 9.6 mg/dl Total Bilirubin 0.7 mg/dl Direct Bilirubin 0.00 mg/dl Indirect Bilirubin 0.7 mg/dl Aspartate Amino Transf (AST/SGOT) 39 IU/L Alanine Aminotransferase (ALT/SGPT) 46 IU/L Alkaline Phosphatase 169 IU/L Total Protein 7.5 g/dl Albumin 4.5 g/dl Globulin 3.00 g/dl Albumin/Globulin Ratio 1.50 Lipase 169 U/L Current Medications Medications Dose Sig/Rebecca Start Time Status Last (Trade) Ordered Route PRN Stop Time Admin Dose Reason Admin Sodium 1,000 ml @ Q1H STAT 10/30/18 DC 10/30/18 Chloride 1,000 mls/hr IV 06:06 06:16 10/30/18 07:05 Ondansetron 4 mg ONCE STAT 10/30/18 DC 10/30/18 HCl (Zofran IV 06:06 06:15 Inj) 10/30/18 06:08 Ketorolac 30 mg ONCE STAT 10/30/18 DC 10/30/18 Tromethamine IV 06:06 06:15 (Toradol) 10/30/18 06:08 IV Flush 10 ml STK-MED 10/30/18 DC 10/30/18 (NS 10 ml) ONCE .ROUTE 07:28 07:33 10/30/18 07:29 Sodium 100 ml @ ud STK-MED 10/30/18 DC 10/30/18 Chloride ONCE .ROUTE 07:28 07:33 10/30/18 07:29 Iohexol 150 ml STK-MED 10/30/18 DC 10/30/18 (Omnipaque ONCE .ROUTE 07:28 07:33 300mg/ ml) 10/30/18 07:29 Piperacillin 100 ml @ ONCE ONCE 10/30/18 DC 10/30/18 Sod/ 200 mls/hr IVPB 08:30 08:44 Tazobactam 10/30/18 08:59 Sod Morphine 4 mg ONCE STAT 10/30/18 DC 10/30/18 Sulfate IV 08:13 08:44 (morphine) 10/30/18 08:14 Procedures/MDM DIAGNOSTIC IMAGING REPORT Patient: PAU CASTRO : 1985 Age: 33 Sex: M MR #: [id number] DOS: 10/30/18 0606 Ordering MD: MARY GROVE PA-C Location: [facility] Room/Bed: PROCEDURE: CT Abdomen and pelvis with contrast CLINICAL INDICATION: Abdominal pain TECHNIQUE: Spiral CT images through the abdomen and pelvis without administration of oral and during intravenous administration of 90 cc of Omnipaque-300 contrast material. Multiplanar reconstructions. The total exam CTDI equals 6.27 mGy and the total exam DLP equals 335.49 mGy-cm. One or more of the following dose reduction techniques were used: automated exposure control, adjustment of the mA and/or kV according to patient size, or use of iterative reconstruction technique. DICOM images are available. COMPARISON: None. FINDINGS: Slight atelectasis of the lung bases is seen. No pleural effusion is seen. . The liver, spleen, adrenal glands and pancreas are unremarkable. There is no evidence of cholelithiasis or biliary ductal dilatation . The left kidney is a trophic measuring 8 cm. The right kidney is normal. There is no evidence of obstructive uropathy. The aorta is normal in caliber. No adenopathy or ascites is seen. There is no evidence for bowel obstruction, free air, or abscess. The appendix is distended measuring 1.1 cm with mild periappendiceal inflammatory changes and appendicoliths. The sigmoid colon and rectum are unremarkable. The bladder is partially distended. The prostate gland is normal. The osseous structures are intact. IMPRESSION: Acute appendicitis. No evidence of perforation or abscess. ER course: Morphine, Toradol and Zosyn given in ED. 1 liter normal saline given ED. MDM: 33 yr old male complaining of abdominal pain. Patient has findings consistent with appendicitis and will be admitted for surgical consultation. Dr. Robert will assist with admission and surgical consultation. Patient is stable at the time of admission. All questions answered at admission ELISSA GROVE PA-C Oct 30, 2018 10:15
[2018-10-30] MEDS ORDERED: DEXTROSE 5%-0.45% NACL 1,000 ML IV SCH (12:06)
[2018-10-30] MEDS ORDERED: ACETAMINOPHEN 325 MG TAB PO PRN ×2 (12:30→18:30)
[2018-10-30] MEDS ORDERED: ONDANSETRON 4 MG INJ IV PRN ×3 (12:30→18:30)
[2018-10-30] MEDS ORDERED: morphine 2 MG INJ IV PRN (12:30)
[2018-10-30] MEDS ORDERED: ZOLPIDEM 5 MG TAB PO PRN (12:30)
[2018-10-30] MEDS: DOCUSATE SODIUM 100 MG CAP PO SCH (14:38)
[2018-10-30] MEDS: metroNIDAZOLE 500 MG/NS (PMX) 100 ML IVPB SCH ×2 (14:39→21:23)
--- NOTE | 2018-10-30 17:10 | CONS ---
Assessment/Plan Assessment/Plan Assessment/Plan (Daily) Acute appendicitis Discussed laparoscopic, possible open, appendectomy with the patient. All bene fits, risks, alternatives discussed in detail. All questions were answered. The patient elects to proceed. Consultation Date/Type/Reason Admit Date/Time Oct 30, 2018 at 08:59 Date/Time of Note DATE: 10/30/18 TIME: 17:08 Hx of Present Illness The patient is a 33-year-old male who developed acute onset of periumbilical pain last night. His symptoms persisted and were associated with nausea. Over the night they localized to his right lower quadrant. He presented to the ER. His work-up is consistent with acute appendicitis. I was called for consultation.. He denies previous symptoms. He denies fevers or chills. Past Medical History Medical History: no pertinent history Home Meds Discontinued Scripts Fluticasone Propionate (Flonase Allergy Relief) 9.9 Ml [place].susp, 2 SPRAY NASAL DAILY, #1 BOTTLE TO EACH NOSTRIL Prov:DUGLAS LUCAS PA-C 06/15/18 Cetirizine Hcl* (Zyrtec*) 10 Mg Capsule, 10 MG PO DAILY, #10 TAB.CHEW Prov:DUGLAS LUCAS PA-C 06/15/18 Ibuprofen* (Motrin*) 600 Mg Tab, 600 MG PO Q6, #30 TAB Prov:DUGLAS LUCAS PA-C 06/15/18 Guaifenesin-Dextromethorphan* (Robitussin* DM) 100MG/10MG/5ML Syrup, 10 ML PO Q6H PRN for COUGH for 5 Days, ML Prov:DUGLAS LUCAS PA-C 06/15/18 Ibuprofen* (Motrin*) 600 Mg Tab, 600 MG PO Q6, #15 TAB Prov:NASRIN GRANT MD 08/21/17 Guaifenesin/Pseudoephedrne HCl (Mucinex D ER 1,200-120 mg Tab) 1 Each Tab.er.12h, 1 EACH PO BID, #14 TAB Prov:NASRIN GRANT MD 08/21/17 Azithromycin* (Zithromax*) 250 Mg Tablet, 250 MG PO .ZamzamPACK DIRECTED, #6 TAB TAKE 500 MG (2 TABS) THE FIRST DAY THEN 250 MG (1 TAB) DAYS 2-5 Prov:NASRIN GRANT MD 08/21/17 Naproxen* (Naprosyn*) 500 Mg Tablet, 500 MG PO BID PRN for PAIN AND/OR INFLAMMATION, #30 TAB Prov:ESTHER FOX PA-C 02/28/17 Benzonatate* (Benzonatate*) 200 Mg Capsule, 200 MG PO TID PRN for COUGH, #20 CAP Prov:ESTHER FOXC 02/28/17 Benzonatate* (Tessalon Perle*) 100 Mg Capsule, 100 MG PO Q8H PRN for COUGH, #20 CAP Prov:WALE BELLO PA-C 12/13/16 Ibuprofen* (Motrin*) 600 Mg Tab, 600 MG PO Q6, #30 TAB Prov:WALE BELLO PA-C 12/13/16 Azithromycin* (Zithromax*) 250 Mg Tablet, 250 MG PO .HERBIE DIRECTED, #6 TAB TAKE 500 MG (2 TABS) THE FIRST DAY THEN 250 MG (1 TAB) DAYS 2-5 Prov:WALE BELLOC 12/13/16 Diphenhydramine Hcl* (Benadryl*) 25 Mg Cap, 25 MG PO Q6 PRN for ITCHING/RASH, #30 TAB Prov:DANIEL HILL PA-C 11/13/16 Cephalexin* (Keflex*) 500 Mg Capsule, 500 MG PO QID for 7 Days, CAP Prov:DANIEL HILL PA-C 11/13/16 Triamcinolone Acetonide (Triamcinolone Acetonide) 0.1% - 15 Gm Cream.gm., 1 APPLIC TOP BID, #1 TUB Prov:DANIEL HILL PA-C 11/13/16 Ibuprofen* (Motrin*) 600 Mg Tab, 600 MG PO Q8 for PAIN AND/OR INFLAMMATION, #30 TAB Prov:MARCUS ROBERT MD 10/08/16 Triamcinolone Acetonide (Triamcinolone Acetonide) 0.1% - 15 Gm Cream.gm., 1 AP PLIC TOP BID, #1 TUB 1 Refill Prov:DAGMAR SWARTZ DO 06/26/16 Cephalexin* (Keflex*) 500 Mg Capsule, 500 MG PO QID for 5 Days, CAP Prov:DAGMAR SWARTZ DO 06/26/16 Ibuprofen* (Ibuprofen*) 600 Mg Tablet, 600 MG PO Q6H PRN for PAIN AND OR ELEVATED TEMP, #30 TAB Prov:ELVIE ESTES SCRAP DEALER 02/11/15 Loratadine* (Loratadine*) 10 Mg Tablet, 10 MG PO DAILY, #30 TAB Prov:ELVIE ESTES SCRAP DEALER 02/11/15 Benzonatate* (Tessalon Perle*) 100 Mg Capsule, 100 MG PO Q8H PRN for COUGH, #20 CAP Prov:ELVIE ESTES SCRAP DEALER 02/11/15 Medications Current Medications Dextrose/Sodium Chloride 1,000 ml @ 125 mls/hr Q8H IV Last administered on 10/30/18at 13:01; Admin Dose 125 MLS/HR; Start 10/30/18 at 12:06 Ondansetron HCl (Zofran Inj) 4 mg Q6H PRN IV NAUSEA/VOMITING; Start 10/30/18 at 12:30 Acetaminophen (Tylenol Tab) 650 mg Q6H PRN PO .PAIN 1-3 OR TEMP; Start 10/30/18 at 12:30 Morphine Sulfate (morphine) 2 mg Q4H PRN IV .SEVERE PAIN 7-10 Last administered on 10/30/18at 13:01; Admin Dose 2 MG; Start 10/30/18 at 12:30 Docusate Sodium (Colace) 100 mg Q12H PO Last administered on 10/30/18at 14:38; Admin Dose 100 MG; Start 10/30/18 at 12:30 Zolpidem Tartrate (Ambien) 5 mg QHS PRN PO .INSOMNIA; Start 10/30/18 at 12:30 Famotidine (Pepcid) 20 mg Q12 PO ; Start 10/30/18 at 21:00 Ciprofloxacin/ Dextrose 200 ml @ 200 mls/hr Q12 IVPB ; Start 10/30/18 at 21:00 Metronidazole 100 ml @ 100 mls/hr Q8 IVPB Last administered on 10/30/18at 14:39; Admin Dose 100 MLS/HR; Start 10/30/18 at 14:00 Allergies: Coded Allergies: No Known Drug Allergies (Verified Allergy, Mild, 10/30/18) Past Surgical History Past Surgical Hx: no surgical history Family History Significant Family History: no pertinent family hx Social History Alcohol Use: none Smoking Status: Never smoker Exam/Review of Systems Exam Vitals Vital Signs Date Temp Pulse Resp B/P (MAP) Pulse Ox O2 O2 Flow FiO2 Time Delivery Rate 10/30/18 97.9 54 18 104/71 98 Room Air 14:25 (82) Constitutional: alert, oriented, well developed Psych: no complaints Head: atraumatic Eyes: nl conjunctiva ENMT: nl external ears & nose Neck: supple, non-tender Respiratory: clear to auscultation, normal air movement Cardiovascular: regular rate and rhythm, nl pulses Gastrointestinal: soft, tender (To the right lower quadrant) Extremities: normal pulses Neurological: SCIENTIFIC MANAGER II-XII intact, nl mental status, nl speech Results Result Diagram: 10/30/18 0613 10/30/18 0613 Results 24hrs Laboratory Tests Test 10/30/18 06:13 White Blood Count 9.0 # Red Blood Count 4.85 Hemoglobin 14.6 Hematocrit 43.7 Mean Corpuscular Volume 90.1 Mean Corpuscular Hemoglobin 30.1 Mean Corpuscular Hemoglobin Concent 33.4 Red Cell Distribution Width 12.7 Platelet Count 270 Mean Platelet Volume 10.8 H Immature Granulocytes % 0.200 Neutrophils % 73.5 Lymphocytes % 17.4 Monocytes % 7.3 Eosinophils % 1.4 Basophils % 0.2 Nucleated Red Blood Cells % 0.0 Immature Granulocytes # 0.020 Neutrophils # 6.6 Lymphocytes # 1.6 Monocytes # 0.7 Eosinophils # 0.1 Basophils # 0.0 Nucleated Red Blood Cells # 0.0 Prothrombin Time 12.5 Prothrombin Time Ratio 1.0 INR International Normalized Ratio 0.92 Activated Partial Thromboplast Time 26.5 Urine Color STRAW Urine Clarity CLEAR Urine pH 6.0 Urine Specific [place] 1.017 Urine Ketones NEGATIVE Urine Nitrite NEGATIVE Urine Bilirubin NEGATIVE Urine Urobilinogen 1+ H Urine Leukocyte Esterase NEGATIVE Urine Hemoglobin NEGATIVE Urine Glucose NEGATIVE Urine Total Protein NEGATIVE Sodium Level 143 Potassium Level 4.3 Chloride Level 108 Carbon Dioxide Level 27 Anion Gap 8 Blood Urea Nitrogen 22 H Creatinine 1.05 Est Glomerular Filtrat Rate mL/min > 60 Glucose Level 101 Calcium Level 9.6 Total Bilirubin 0.7 Direct Bilirubin 0.00 Indirect Bilirubin 0.7 Aspartate Amino Transf (AST/SGOT) 39 Alanine Aminotransferase (ALT/SGPT) 46 Alkaline Phosphatase 169 H Total Protein 7.5 Albumin 4.5 Globulin 3.00 Albumin/Globulin Ratio 1.50 Lipase 169 Imaging Imaging Patient: PAU CASTRO : 1985 Age: 33 Sex: M MR #: [id number] DOS: 10/30/18 0606 Ordering MD: MARY GROVE PA-C Location: [facility] Room/Bed: PROCEDURE: CT Abdomen and pelvis with contrast CLINICAL INDICATION: Abdominal pain TECHNIQUE: Spiral CT images through the abdomen and pelvis without administration of oral and during intravenous administration of 90 cc of Omnipaque-300 contrast material. Multiplanar reconstructions. The total exam CTDI equals 6.27 mGy and the total exam DLP equals 335.49 mGy-cm. One or more of the following dose reduction techniques were used: automated exposure control, adjustment of the mA and/or kV according to patient size, or use of iterative reconstruction technique. DICOM images are available. COMPARISON: None. FINDINGS: Slight atelectasis of the lung bases is seen. No pleural effusion is seen. . The liver, spleen, adrenal glands and pancreas are unremarkable. There is no evidence of cholelithiasis or biliary ductal dilatation . The left kidney is atrophic measuring 8 cm. The right kidney is normal. There is no evidence of obstructive uropathy. The aorta is normal in caliber. No adenopathy or ascites is seen. There is no evidence for bowel obstruction, free air, or abscess. The appendix is distended measuring 1.1 cm with mild periappendiceal inflammatory changes and appendicoliths. The sigmoid colon and rectum are unremarkable. The bladder is partially distended. The prostate gland is normal. The osseous structures are intact. IMPRESSION: Acute appendicitis. No evidence of perforation or abscess. [facility] Results were called to Katie Ortiz Pa-C at 10/30/2018 8:13 AM Gerardo Patel, Physician Date Time Electronically viewed and signed by Gerardo Patel, Physician on 10/30/2018 08:14 CS/ Medications Medication Current Medications Dextrose/Sodium Chloride 1,000 ml @ 125 mls/hr Q8H IV Last administered on 10/30/18at 13:01; Admin Dose 125 MLS/HR; Start 10/30/18 at 12:06 Ondansetron HCl (Zofran Inj) 4 mg Q6H PRN IV NAUSEA/VOMITING; Start 10/30/18 at 12:30 Acetaminophen (Tylenol Tab) 650 mg Q6H PRN PO .PAIN 1-3 OR TEMP; Start 10/30/18 at 12:30 Morphine Sulfate (morphine) 2 mg Q4H PRN IV .SEVERE PAIN 7-10 Last administered on 10/30/18at 13:01; Admin Dose 2 MG; Start 10/30/18 at 12:30 Docusate Sodium (Colace) 100 mg Q12H PO Last administered on 10/30/18at 14:38; Admin Dose 100 MG; Start 10/30/18 at 12:30 Zolpidem Tartrate (Ambien) 5 mg QHS PRN PO .INSOMNIA; Start 10/30/18 at 12:30 Famotidine (Pepcid) 20 mg Q12 PO ; Start 10/30/18 at 21:00 Ciprofloxacin/ Dextrose 200 ml @ 200 mls/hr Q12 IVPB ; Start 10/30/18 at 21:00 Metronidazole 100 ml @ 100 mls/hr Q8 IVPB Last administered on 10/30/18at 14:39; Admin Dose 100 MLS/HR; Start 10/30/18 at 14:00 RADHAMES GO MD Oct 30, 2018 17:10
--- NOTE | 2018-10-30 17:15 | OPR ---
Date/Time of Note Date/Time of Note DATE: 10/30/18 TIME: 17:15 Operative Report Preoperative Diagnosis Acute appendicitis Postoperative Diagnosis Same Operation/Procedure Performed Laparoscopic appendectomy Surgeon see signature line Pharmacologist None Anesthesia Type: general Anesthesiologist: ULISES BROOKE MD Estimated Blood Loss: 10 - 50 ml's Transfusion none Specimen Appendix Grafts/Implants none Complications none Pt Condition Post Procedure: stable Disposition: PACU Indications The patient is a 33-year-old male with acute appendicitis. I discussed laparoscopic, possible open, appendectomy with the patient and her family. All benefits, risks, alternatives were discussed in detail. All questions answered. The mother and father elected to proceed per Procedure Description The patient was brought to operative room placed supine on the table. After pr eop antibiotics and SCDs were applied, the patient was intubated. The abdomen was cleaned, prepped, draped in usual sterile fashion. All incisions were infiltrated with half percent lidocaine with epinephrine. A 5 mm incision was made in the umbilicus. Using a 5 by laparoscope obtained trocar, the abdomen was was entered and insufflated to 15 mmHg CO2. The following trochars in place and direct vision: A right lower quadrant 5 mm left lower quadrant 12 mm I visualized the abdomen and emanating from the cecum was an obvious acute appendicitis. It was not ruptured or perforated. I made a rent through the mesentery at the base of the appendix. I then divided the base of the appendix to the cecum with a 35 mm Endo linear cutter white load. There was some retroperitoneal attachments of the appendix which were taken down with electrocautery. I was able to elevate the appendix. The mesentery was then divided with a 35 mm Endo linear cutter white load. There was some oozing in the mesentery of the appendix which was controlled with 5 mm clips The appendix was placed in Endo Catch bag removed and the 12 mm trocar site. I irrigated out the right lower quadrant and pelvis until effluent was clear. I visualized the staple lines. They were hemostatic. I desufflated the abdomen and removed all trochars. The fascia of the 12 mm trocar site was closed with 0 Vicryl. Skin incisions were closed with 4-0 Monocryl, Mastisol, and Steri-Strips marked muscle Steri-Strips. The patient tired procedure well, was extubated ER, and transferred to the recovery room in stable condition. RADHAMES GO MD Oct 30, 2018 17:15
[2018-10-30] MEDS ORDERED: MIDAZOLAM 1 MG/ML 2 ML INJ ONE (17:28)
[2018-10-30] MEDS ORDERED: PROPOFOL 20 ML ONE (17:28)
[2018-10-30] MEDS ORDERED: CEFAZOLIN 1 GM INJ ONE (17:28)
[2018-10-30] MEDS ORDERED: ROPIVACAINE 0.2% 20 ML VIAL ONE (17:28)
[2018-10-30] MEDS ORDERED: FENTAnyl 50 MCG/ML VIAL ONE (17:28)
[2018-10-30] MEDS ORDERED: ROCURONIUM 50 MG INJ ONE (17:28)
--- NOTE | 2018-10-30 17:42 | PREAC ---
Date/Time of Note Date/Time of Note DATE: 10/30/18 TIME: 17:40 Anesthesia Eval and Record Evaluation Time Pre-Procedure Interview DATE: 10/30/18 TIME: 17:40 Age 33 Sex male NPO: 8 hrs Preoperative diagnosis Acute Appendicitis Planned procedure Laparoscopic Appendectomy Past Medical History Past Medical History: Includes Pulm: Other (Hx URI) Musculoskeletal: Other (carpal tunnel syndrome) Surgery & Anesthesia Issues No known issue Meds Anticoagulation: No Beta Estephanie within 24 hr: No Reason Beta Estephanie not given: Pt. not on B-Estephanie Discontinued Scripts Fluticasone Propionate (Flonase Allergy Relief) 9.9 Ml [place].susp, 2 SPRAY NASAL DAILY, #1 BOTTLE TO EACH NOSTRIL Prov:DUGLAS LUCAS PA-C 06/15/18 Cetirizine Hcl* (Zyrtec*) 10 Mg Capsule, 10 MG PO DAILY, #10 TAB.CHEW Prov:DUGLAS LUCAS PA-C 06/15/18 Ibuprofen* (Motrin*) 600 Mg Tab, 600 MG PO Q6, #30 TAB Prov:DUGLAS LUCAS PA-C 06/15/18 Guaifenesin-Dextromethorphan* (Robitussin* DM) 100MG/10MG/5ML Syrup, 10 ML PO Q6H PRN for COUGH for 5 Days, ML Prov:DUGLAS LUCAS PA-C 06/15/18 Ibuprofen* (Motrin*) 600 Mg Tab, 600 MG PO Q6, #15 TAB Prov:NASRIN GRANT MD 08/21/17 Guaifenesin/Pseudoephedrne HCl (Mucinex D ER 1,200-120 mg Tab) 1 Each Tab.er.12h, 1 EACH PO BID, #14 TAB Prov:NASRIN GRANT MD 08/21/17 Azithromycin* (Zithromax*) 250 Mg Tablet, 250 MG PO .HERBIE DIRECTED, #6 TAB TAKE 500 MG (2 TABS) THE FIRST DAY THEN 250 MG (1 TAB) DAYS 2-5 Prov:NASRIN GRANT MD 08/21/17 Naproxen* (Naprosyn*) 500 Mg Tablet, 500 MG PO BID PRN for PAIN AND/OR INFLAMMAT ION, #30 TAB Prov:ESTHER FOX PA-C 02/28/17 Benzonatate* (Benzonatate*) 200 Mg Capsule, 200 MG PO TID PRN for COUGH, #20 CAP Prov:ESTHER FOX PA-C 02/28/17 Benzonatate* (Tessalon Perle*) 100 Mg Capsule, 100 MG PO Q8H PRN for COUGH, #20 CAP Prov:WALE BELLO PA-C 12/13/16 Ibuprofen* (Motrin*) 600 Mg Tab, 600 MG PO Q6, #30 TAB Prov:WALE BELLO PA-C 12/13/16 Azithromycin* (Zithromax*) 250 Mg Tablet, 250 MG PO .HERBIE DIRECTED, #6 TAB TAKE 500 MG (2 TABS) THE FIRST DAY THEN 250 MG (1 TAB) DAYS 2-5 Prov:WALE BELLO PA-C 12/13/16 Diphenhydramine Hcl* (Benadryl*) 25 Mg Cap, 25 MG PO Q6 PRN for ITCHING/RASH, #30 TAB Prov:DANIEL HILL PA-C 11/13/16 Cephalexin* (Keflex*) 500 Mg Capsule, 500 MG PO QID for 7 Days, CAP Prov:DANIEL HILL PA-C 11/13/16 Triamcinolone Acetonide (Triamcinolone Acetonide) 0.1% - 15 Gm Cream.gm., 1 APPLIC TOP BID, #1 TUB Prov:DANIEL HILL PA-C 11/13/16 Ibuprofen* (Motrin*) 600 Mg Tab, 600 MG PO Q8 for PAIN AND/OR INFLAMMATION, #30 TAB Prov:MARCUS ROBERT MD 10/08/16 Triamcinolone Acetonide (Triamcinolone Acetonide) 0.1% - 15 Gm Cream.gm., 1 APPLIC TOP BID, #1 TUB 1 Refill Prov:DAGMAR SWARTZ DO 06/26/16 Cephalexin* (Keflex*) 500 Mg Capsule, 500 MG PO QID for 5 Days, CAP Prov:MAXIMEANABELDAGMAR DO 06/26/16 Ibuprofen* (Ibuprofen*) 600 Mg Tablet, 600 MG PO Q6H PRN for PAIN AND OR ELEVATED TEMP, #30 TAB Prov:ELVIE ESTES NP 02/11/15 Loratadine* (Loratadine*) 10 Mg Tablet, 10 MG PO DAILY, #30 TAB Prov:ELVIE ESTES NP 02/11/15 Benzonatate* (Tessalon Perle*) 100 Mg Capsule, 100 MG PO Q8H PRN for COUGH, #20 CAP Prov:ELVIE ESTES NP 02/11/15 Current Medications Dextrose/Sodium Chloride 1,000 ml @ 125 mls/hr Q8H IV Last administered on 10/30/18at 13:01; Admin Dose 125 MLS/HR; Start 10/30/18 at 12:06 Ondansetron HCl (Zofran Inj) 4 mg Q6H PRN IV NAUSEA/VOMITING; Start 10/30/18 at 12:30 Acetaminophen (Tylenol Tab) 650 mg Q6H PRN PO .PAIN 1-3 OR TEMP; Start 10/30/18 at 12:30 Morphine Sulfate (morphine) 2 mg Q4H PRN IV .SEVERE PAIN 7-10 Last administered on 10/30/18at 13:01; Admin Dose 2 MG; Start 10/30/18 at 12:30 Docusate Sodium (Colace) 100 mg Q12H PO Last administered on 10/30/18at 14:38; Admin Dose 100 MG; Start 10/30/18 at 12:30 Zolpidem Tartrate (Ambien) 5 mg QHS PRN PO .INSOMNIA; Start 10/30/18 at 12:30 Famotidine (Pepcid) 20 mg Q12 PO ; Start 10/30/18 at 21:00 Ciprofloxacin/ Dextrose 200 ml @ 200 mls/hr Q12 IVPB ; Start 10/30/18 at 21:00 Metronidazole 100 ml @ 100 mls/hr Q8 IVPB Last administered on 10/30/18at 14:39; Admin Dose 100 MLS/HR; Start 10/30/18 at 14:00 Meds reviewed: Yes Allergies Coded Allergies: No Known Drug Allergies (Verified Allergy, Mild, 10/30/18) Allergies Reviewed: Yes Labs/Studies Labs Reviewed: Reviewed by anesthesiologist Result Diagram: 10/30/18 0613 10/30/18 0613 Laboratory Tests 10/30/18 06:13 test: N/A Studies: ECG (n/a), CXR (n/a) Pre-procedure Exam Last vitals Vital Signs Date Temp Pulse Resp B/P (MAP) Pulse Ox O2 O2 Flow FiO2 Time Delivery Rate 10/30/18 97.9 54 18 104/71 98 Room Air 14:25 (82) Airway: Adequate mouth opening, Adequate thyromental dist Mallampati: Mallampati II Teeth: Normal Lung: Normal Heart: Normal ASA Physical Status ASA physical status: 2 Emergency: E Planned Anesthetic General/MAC: ETT Nerve block: TAP (bilateral) Planned Pain Management Single shot nerve block, Parenteral pain med Pre-operative Attestations Prior to commencing anesthesia and surgery, the patient was re-evaluated, there was verification of: *The patient's identity *The results of appropriate recent lab work and preoperative vital signs *The above evaluation not changing prior to induction *Anesthetic plan, risk benefits, alternative and complications discussed with patient/family; questions answered; patient/family understands, accepts and wishes to proceed. ULISES BROOKE MD Oct 30, 2018 17:42
[2018-10-30] MEDS ORDERED: BUPIVACAINE 0.5% (SDV) 30 ML INJ ONE (17:45)
[2018-10-30] MEDS ORDERED: LIDOCAINE 1%/EPI (1:100,000) (MDV) 20 ML ONE (17:46)
[2018-10-30] MEDS ORDERED: DIPHENHYDRAMINE 50 MG INJ IV PRN (18:00)
[2018-10-30] MEDS ORDERED: EPHEDrine SULFATE 50 MG/5 ML SYG IV PRN (18:00)
[2018-10-30] MEDS ORDERED: HYDROmorphONE 1 MG/5 ML IV SYRINGE IV PRN ×3 (18:00)
[2018-10-30] MEDS ORDERED: FENTAnyl 50 MCG/ML VIAL IV PRN ×3 (18:00)
[2018-10-30] MEDS ORDERED: METOCLOPRAMIDE 10 MG INJ IV PRN (18:00)
[2018-10-30] MEDS ORDERED: MEPERIDINE 25 MG INJ IV PRN (18:00)
[2018-10-30] MEDS ORDERED: IBUPROFEN 600 MG TAB PO PRN (18:30)
[2018-10-30] MEDS ORDERED: HYDROCODONE/APAP (5/325) TAB PO PRN (18:30)
[2018-10-30] MEDS ORDERED: SUGAMMADEX SODIUM 200 MG/2 ML VIAL IV ONE (18:33)
[2018-10-30] MEDS ORDERED: DEXAMETHASONE 4 MG/ML 5 ML INJ ONE (18:33)
[2018-10-30] MEDS ORDERED: METOCLOPRAMIDE 10 MG INJ ONE (18:33)
[2018-10-30] MEDS ORDERED: KETOROLAC 30 MG INJ ONE (18:33)
[2018-10-30] MEDS ORDERED: ONDANSETRON 4 MG INJ ONE (18:33)
--- NOTE | 2018-10-30 18:49 | SIPON ---
Date/Time of Note Date/Time of Note DATE: 10/30/18 TIME: 18:48 Operative Report Preoperative Diagnosis Acute appendicitis Postoperative Diagnosis Same Operation/Procedure Performed Laparoscopic appendectomy Surgeon see signature line general surgery physician assistant None Anesthesia: general Estimated blood loss: 10 - 50 ml's Transfusion Required none Specimen Appendix Grafts/Implants none Complications none RADHAMES GO MD Oct 30, 2018 18:48
--- NOTE | 2018-10-30 18:57 | PAC ---
Date/Time of Note Date/Time of Note DATE: 10/30/18 TIME: 18:56 Post-Anesthesia Notes Post-Anesthesia Note Last documented vital signs Vital Signs Date Temp Pulse Resp B/P (MAP) Pulse Ox O2 O2 Flow FiO2 Time Delivery Rate 10/30/18 98.0 54 18 162/101 100 face mask 8 L 19:00 (127) Activity: WNL Respiratory function: WNL Cardiovascular function: WNL Mental status: Baseline Pain reasonably controlled: Yes Hydration appropriate: Yes Nausea/Vomiting absent: Yes ULISES BROOKE MD Oct 30, 2018 18:57
[2018-10-30] MEDS: morphine 2 MG INJ IV PRN (21:19)
[2018-10-30] MEDS: FAMOTIDINE 20 MG TAB PO SCH (21:20)
[2018-10-30] MEDS: D5-NS + KCL 20 MEQ 1,000 ML IV SCH (21:23)
[2018-10-30] MEDS: CIPROFLOXACIN 400MG/D5W 200 ML IVPB SCH (22:37)
[2018-10-31] MEDS: PIPER-TAZO 3.375 GM IV (PMX) 100 ML IVPB SCH ×4 (00:53→18:00)
[2018-10-31] MEDS: DOCUSATE SODIUM 100 MG CAP PO SCH ×2 (00:53→13:09)
[2018-10-31 02:00] VITALS: BP 112/75; PULSE 55; RESP 18
[2018-10-31] MEDS: D5-NS + KCL 20 MEQ 1,000 ML IV SCH ×2 (05:41→11:41)
[2018-10-31] MEDS: metroNIDAZOLE 500 MG/NS (PMX) 100 ML IVPB SCH ×2 (06:18→15:26)
--- NOTE | 2018-10-31 06:24 | HP ---
DATE OF ADMISSION: 10/30/2018 PRESENTING COMPLAINT: Abdominal pain. HISTORY OF PRESENTING COMPLAINT: A 33-year-old male with no known past medical history who presented to the Emergency Room with a 1-day history of umbilical epigastric pain radiating to her right lower quadrant. Pain started yesterday afternoon. The patient has not really had any vomiting, but has had episodes of nausea which is nonsustained. Has had subjective chills and mild fever. Denies passing out episodes. Denied dysuria or hematuria. Last bowel movement was yesterday without blood and was not black. No history of similar in the past. PAST MEDICAL HISTORY: None. PAST SURGICAL HISTORY: None. ALLERGIES: No known drug allergies. SOCIAL HISTORY: Denies tobacco, alcohol or illicit drug use. FAMILY HISTORY: Noncontributory. REVIEW OF SYSTEMS: Per HPI. PHYSICAL EXAMINATION: VITAL SIGNS: Temperature 97.9, pulse 54, respirations 18, blood pressure 118/79, saturations 98% on room air. GENERAL: Alert, oriented, in no distress. HEENT: Head is normocephalic. Pupils equal and reactive. Mucous membranes are moist with differential of erythema and exudate. NECK: Supple, nontender. CHEST: Clear to auscultation. Good air entry on both sides. CARDIOVASCULAR: Heart sounds S1 and S2 without added sounds or murmurs. ABDOMEN: Mildly distended, diffusely sore, but tender mainly in the right lower quadrant with minimal guarding. He is also somewhat tender in the umbilical area. SKIN: Otherwise, no rash or jaundice. PSYCHIATRIC: Calm, cooperative with exam. LABORATORY VALUES: Hematology basically normal as is the chemistry. coag profile was also normal. Urinalysis is also negative. IMAGING: A CT of the abdomen and pelvis; however, does show acute hyperdense appendicitis without evidence of perforation and abscess. ASSESSMENT: This is a 33-year-old male who presents with a 1-day history of umbilical abdominal pain radiating to his right lower quadrant, being admitted and managed for acute appendicitis. PLAN: Admit to med/surg, provide supportive care with pain control, IV fluids and antibiotics. The patient will be kept n.p.o. until surgical review. The patient will benefit from laparoscopic appendectomy and further interventions per his clinical course. Surgery discussed with him in detail. Questions have been answered. Will await surgical evaluation for further recommendations. Dictated By: TRACY GAMBINO MD, BA/JOSE EDUARDO Conf#: [id number] DID#: [id number]
[2018-10-31] MEDS ORDERED: ENOXAPARIN 40 MG/0.4 ML SYG SC SCH (07:00)
[2018-10-31 07:55] VITALS: BP 107/70; PULSE 68; RESP 16
[2018-10-31] MEDS: morphine 2 MG INJ IV PRN ×2 (10:58→16:34)
[2018-10-31] MEDS: FAMOTIDINE 20 MG TAB PO SCH (10:58)
[2018-10-31] MEDS: CIPROFLOXACIN 400MG/D5W 200 ML IVPB SCH (11:34)
--- NOTE | 2018-10-31 13:20 | PN ---
Date/Time of Note Date/Time of Note DATE: 10/31/18 TIME: 13:19 Assessment/Plan Lines/Catheters IV Catheter Type (from Nrsg): Peripheral IV Fernandez in Place (from Nrsg): No Assessment/Plan Assessment/Plan Postop day #1 status post lap appendectomy for uncomplicated appendicitis Doing well. Okay to discharge today. Subjective 24 Hr Interval Summary Constitutional: no complaints, improved Feeding: advancing diet Pain Control: well controlled Exam/Review of Systems Vital Signs Vitals Vital Signs Date Temp Pulse Resp B/P (MAP) Pulse Ox O2 O2 Flow FiO2 Time Delivery Rate 10/31/18 98.0 68 16 107/70 98 07:55 (82) 10/30/18 Nasal 2.0 20:05 Cannula Intake and Output 10/30/18 10/30/18 10/31/18 1414:59 22:59 06:59 IntakeIntake Total 1200 ml 1800 ml 650 ml OutputOutput Total 755 ml 900 ml BalanceBalance 1200 ml 1045 ml -250 ml Exam Constitutional: alert, oriented, well developed Gastrointestinal: soft, non-tender Results Result Diagram: 10/31/18 0630 10/31/1830 RADHAMES GO MD Oct 31, 2018 13:20
[2018-10-31 14:16] VITALS: BP 116/71; PULSE 71; RESP 16
[2018-10-31] MEDS ORDERED: HYDR-3601 PO (15:10)
[2018-10-31] MEDS ORDERED: DOCU-144 PO (15:10)
--- NOTE | 2018-10-31 15:57 | DS ---
DATE OF ADMISSION: 10/30/2018 DATE OF DISCHARGE: 10/31/2018 FINAL DIAGNOSIS: Acute appendicitis, status post laparoscopic appendectomy for complicated appendici tis. CONSULTS ON THE CASE: Dr. Osbaldo Ny, general surgery. INTERVENTIONS: Laparoscopic appendectomy 10/30/2018. DISCHARGE CONDITION: Stable. DIET: Regular. ACTIVITIES: As tolerated. DISCHARGE MEDICATIONS: The patient is being discharged on pain medications as stool softeners. FOLLOWUP: The patient recommended follow up as needed with his primary care doctor. Time spent on discharge coordination has been less than 30 minutes. Dictated By: TRACY GAMBINO MD BA/NTS Conf#: [id number] DID#: [id number]
== END 2018-10-31 18:20 | disposition home or self-care (01) | DRG 343 ==
LOC: FTE 05:35 → PP2 08:59
PROVIDERS: ADMIT Family Medicine; ATTEND Family Medicine
PROC: 0DTJ4ZZ Resection of Appendix, Percutaneous Endoscopic Approach (ICD-10-PCS; principal; 2018-10-30 18:00)
DX: K35.80 Unspecified acute appendicitis (principal)
CPT/HCPCS: 74177; 80048; 80053; 81003; 83690; 83735; 85025; 85610; 85730; 88304; J0690; J0744; J1100; J1650; J1885; J2250; J2270; J2405; J2543; J2765; J2795; J3010; J3480; J7030; J7042; Q9967

== ENCOUNTER 2018-11-28 16:39 | Emergency (ER) | payer MEDICAID ==
[~2018-11-28] VITALS: Wt 57.6 kg
[~2018-11-28 16:39] MED LIST changes: -AZIT250T PO; -BEN25 PO; -BENZ-6 PO; -BENZ200C68 PO; -CEPH-443 PO; -CETI10CA PO; +DOCU-144 PO; -FLUT9.9S NASAL; -GUAI-106 PO; -GUAI5SYR2 PO; +HYDR-3601 PO; -IBUP-1542 PO; -LORA10TA3 PO; -NAPR-985 PO; -TRIA15CR55 TOP
[2018-11-28] MEDS ORDERED: AZIT250T PO (18:39)
[2018-11-28] MEDS ORDERED: GUAI1TBM12 PO (18:39)
[2018-11-28] MEDS ORDERED: IBUP-1561 PO (18:39)
--- NOTE | 2018-11-28 18:42 | ERD ---
ER Documentation Chief Complaint Chief Complaint cough, congestion x 3 days HPI 33-year-old male presents with productive cough for last 4 days. He has had fever at home but no fever triage. He has left lower quadrant pain with coughing where he had an appendectomy incision from 1 month ago. Denies bleeding, sustained abdominal pain, vomiting, additional symptoms. ROS All systems reviewed and are negative except as per history of present illness. Medications Home Meds Active Scripts Azithromycin* (Zithromax*) 250 Mg Tablet, 250 MG PO .ZPACK DIRECTED, #6 TAB TAKE 500 MG (2 TABS) THE FIRST DAY THEN 250 MG (1 TAB) DAYS 2-5 Prov:NASRIN GRANT MD 11/28/18 Ibuprofen* (Motrin*) 400 Mg Tab, 400 MG PO Q6, #15 TAB Prov:NASRIN GRANT MD 11/28/18 Guaifenesin/Dextromethorphan (Mucinex Dm ER 1,200-60 mg Tab) 1 Each Tbmp.12hr, 1 EACH PO BID for 7 Days, #14 TAB Prov:NASRIN GRANT MD 11/28/18 Docusate Sodium* (Colace*) 100 Mg Capsule, 100 MG PO Q12H, #14 CAP Prov:TRACY GAMBINO. 10/31/18 Hydrocodone Bit-Acetaminophen (Hydrocodone Bit-APAP) 5-325MG Tablet, 1 TAB PO Q6H PRN for PAIN LEVEL 4-7, #10 TAB Prov:TRACY GAMBINO. 10/31/18 Allergies Allergies: Coded Allergies: No Known Drug Allergies (Verified Allergy, Mild, 10/30/18) PMhx/Soc Medical and Surgical Hx: pt denies Medical Hx History of Surgery: Yes (appendix) Anesthesia Reaction: No Hx Neurological Disorder: No Hx Respiratory Disorders: No Hx Cardiac Disorders: No Hx Psychiatric Problems: No Hx Miscellaneous Medical Probl: No Hx Alcohol Use: No Hx Substance Use: No Hx Tobacco Use: No Smoking Status: Never smoker FmHx Family History: No diabetes, No coronary disease, No other Physical Exam Vitals Vital Signs Date Temp Pulse Resp B/P (MAP) Pulse Ox O2 O2 Flow FiO2 Time Delivery Rate 11/28/18 98.0 81 18 127/73 99 16:43 (91) Physical Exam Const: No acute distress Head: Atraumatic Eyes: Normal Conjunctiva ENT: Normal External Ears, Nose and Mouth. TMs and oropharynx normal. Neck: Full range of motion. No meningismus. Resp: Clear to auscultation bilaterally without rales, wheezing or retractions. Cardio: Regular rate and rhythm, no murmurs Abd: Soft, non tender, non distended. Normal bowel sounds. Healed surgical scars. Skin: No petechiae or rashes Back: No midline or flank tenderness Ext: No cyanosis, or edema Neur: Awake and alert Psych: Normal Mood and Affect Procedures/MDM Patient presents with URI symptoms and productive cough for the last 4 days. He has no signs of hypoxemia, respiratory stress, pneumonia. He will be treated e mpirically by request although patient counseled on viral versus bacterial causes of URI and cough. We treated with Mucinex DM, ibuprofen, Zithromax, primary care follow-up and return precautions. He has incisional pain with coughing without signs of obstruction, significant abdominal pain to suggest abscess or additional complications. The patient was stable with no new complai nts during the ER course. Clinically, there is no current evidence to suggest meningitis, sepsis, acute abdomen, pneumonia, stroke, acute coronary syndrome, pulmonary embolism, aortic dissection or any other emergent condition appearing to require further evaluation or hospitalization. Patient counseled regarding my diagnostic impression and care plan. Prior to discharge all questions answered. Pt agrees with treatment plan and understands strict return precautions. Pt is instructed to follow up with primary care provider within 24- 48 hours. Precautionary instructions provided including instructions to return to the ER if not improving or for any worsening or changing symptoms or concerns. Disclaimer: Inadvertent spelling and grammatical errors are likely due to EHR/dictation software use and do not reflect on the overall quality of patient care. Also, please note that the electronic time recorded on this note does not necessarily reflect the actual time of the patient encounter. Departure Diagnosis: Primary Impression: Upper respiratory infection URI type: unspecified URI Qualified Codes: J06.9 - Acute upper respiratory infection, unspecified Condition: Stable Patient Instructions: Bronchitis, Antiobiotic Treatment (Adult) Referrals: NO PRIMARY,CARE PHYSICIAN (PCP) Additional Instructions: Recheck for new or worsening symptoms with primary care doctor. NASRIN GRANT MD November 28, 2018 18:41
[2018-11-28 18:48] VITALS: BP 130/82; PULSE 80; RESP 19
== END 2018-11-28 18:48 | disposition home or self-care (01) ==
LOC: FTE 16:39
DX: J06.9 Acute upper respiratory infection, unspecified (principal)
CPT/HCPCS: 99283

== ENCOUNTER 2019-01-03 04:06 | Emergency (ER) | payer MEDICAID ==
[~2019-01-03] VITALS: Ht 165.1 cm; Wt 55.6 kg
[~2019-01-03 04:06] MED LIST changes: +AZIT250T PO; +GUAI1TBM12 PO; +IBUP-1561 PO
[2019-01-03 04:08] VITALS: Ht 165.1 cm; Wt 55.6 kg
[2019-01-03] MEDS ORDERED: KETOROLAC 30 MG INJ IM STA (04:39)
--- NOTE | 2019-01-03 04:39 | ERD ---
ER Documentation Chief Complaint Chief Complaint Pt reports R knee pain x 1 day, knee is swollen HPI This is a 33-year-old male presents to emerge department with complaints of nontraumatic right knee pain for about a day. Stated that his right knee is swollen. Denies any injury. Denies headache, head injury, loss of consciousness, dizziness, neck pain, neck stiffness, throat pain, difficulty swallowing, difficulty breathing lying flat, shoulder pain, chest pain, back pain, abdominal pain, nausea, vomiting, constipation, diarrhea, urinary symptoms, loss of bowel and bladder control, trauma, injury, falls, difficulty walking due to pain, numbness or tingling sensation, calf pain, recent travel, recent major surgery in the last 3 weeks, calf pain, recent long travel, recent exposure to any illness, recent antibiotic use in the last 3 months, fever, chills, seizures. Past medical history: Denies. Surgical history: Appendectomy. Social: Denies smoking, use of alcoholic beverages, use of illegal drugs. ROS All systems reviewed and are negative except as per history of present illness. Medications Home Meds Active Scripts Cephalexin* (Keflex*) 500 Mg Capsule, 500 MG PO TID for 7 Days, CAP Prov:PASILAPAKOJUSTENAR F 01/03/19 Ibuprofen* (Motrin*) 600 Mg Tab, 600 MG PO Q6H PRN for PAIN AND OR ELEVATED TEMP, #30 TAB Prov:FEDERICO VIRK F 01/03/19 Azithromycin* (Zithromax*) 250 Mg Tablet, 250 MG PO .ZPACK DIRECTED, #6 TAB TAKE 500 MG (2 TABS) THE FIRST DAY THEN 250 MG (1 TAB) DAYS 2-5 Prov:NASRIN GRANT MD 11/28/18 Ibuprofen* (Motrin*) 400 Mg Tab, 400 MG PO Q6, #15 TAB Prov:NASRIN GRANT MD 11/28/18 Guaifenesin/Dextromethorphan (Mucinex Dm ER 1,200-60 mg Tab) 1 Each Tbmp.12hr, 1 EACH PO BID for 7 Days, #14 TAB Prov:NASRIN GRANT MD 11/28/18 Docusate Sodium* (Colace*) 100 Mg Capsule, 100 MG PO Q12H, #14 CAP Prov:TRACY GAMBINO 10/31/18 Hydrocodone Bit-Acetaminophen (Hydrocodone Bit-APAP) 5-325MG Tablet, 1 TAB PO Q6H PRN for PAIN LEVEL 4-7, #10 TAB Prov:TRACY GAMBINO. 10/31/18 Allergies Allergies: Coded Allergies: No Known Drug Allergies (Verified Allergy, Mild, 10/30/18) PMhx/Soc History of Surgery: Yes (appendix) Anesthesia Reaction: No Hx Neurological Disorder: No Hx Respiratory Disorders: No Hx Cardiac Disorders: No Hx Psychiatric Problems: No Hx Miscellaneous Medical Probl: No Hx Alcohol Use: No Hx Substance Use: No Hx Tobacco Use: No Physical Exam Vitals Vital Signs Date Temp Pulse Resp B/P (MAP) Pulse Ox O2 O2 Flow FiO2 Time Delivery Rate 01/03/19 97.9 61 18 116/85 98 05:51 (95) 01/03/19 98.9 64 16 107/73 97 04:08 (84) Physical Exam Const: No acute distress Head: Atraumatic Eyes: Normal Conjunctiva ENT: Normal External Ears, Nose and Mouth. Neck: Full range of motion. No meningismus. Resp: Clear to auscultation bilaterally Cardio: Regular rate and rhythm, no murmurs Abd: Soft, non tender, non distended. Normal bowel sounds Skin: No petechiae or rashes Back: No midline or flank tenderness Ext: No cyanosis, or edema. Right knee: Swelling noted with mild tenderness. Skin is not warm to touch. No redness. Good and full range of motion. Able to bear weight on right lower extremity. No calf tenderness to right lower extremity. Right pedal pulse is within normal limits. Capillary refills to right lower extremity is less than 2 seconds. Bilateral hips are stable and unremarkable. Left lower extremity is unremarkable. No neurovascular deficit. Ambulatory with steady gait. Neur: Awake and alert. No neurological deficits. Psych: Normal Mood and Affect Results 24 hrs Current Medications Medications Dose Sig/Rebecca Start Time Status Last (Trade) Ordered Route PRN Stop Time Admin Dose Reason Admin Ketorolac 30 mg ONCE STAT 01/03/19 DC 01/03/19 Tromethamine IM 04:39 01/03/19 04:48 (Toradol) 04:41 1 tab ONCE ONCE 01/03/19 DC 01/03/19 Acetaminophen PO 05:00 01/03/19 04:46 / 05:01 Hydrocodone Bitart ([place] (9/690)) Procedures/MDM Diagnostic tests: X-ray of the right knee: No evidence of acute fracture dislocation or joint effusion. Treatment: Toradol. [place] p.o. Re-evaluation: Denies knee pain. No calf tenderness bilaterally. No neurovascular deficits. Ambulatory with steady gait. Stated that he feels much better at this time and that is ready to go home. Stated that he is comfortable to go home. Differential diagnosis I have low suspicion for displaced fracture, septic joint, open fracture, septic arthritis, DVT, compartment syndrome. Final diagnosis: Knee pain. Patient insisted antibiotic for this. Prescription: Motrin. Keflex. Follow-up with PCP in the next 24-48 hours. Come back here in the emergency department for any new symptoms or any worsening symptoms. All questions and concerns were answered. Patient and family members verbalized understanding and agreed with plan of care. Hemodynamically stable on discharge. Departure Diagnosis: Primary Impression: Knee pain Condition: Stable Additional Instructions: Follow-up with PCP in the next 24-48 hours. Come back here in the emergency department for any new symptoms or any worsening symptoms. FEDERICO VIRK Jan 03, 2019 04:39
[2019-01-03] MEDS ORDERED: HYDROCODONE/APAP (5/325) TAB PO ONE (05:00)
[2019-01-03] MEDS ORDERED: IBUP-1542 PO (05:36)
[2019-01-03] MEDS ORDERED: CEPH-443 PO (05:37)
[2019-01-03 05:51] VITALS: BP 116/85; PULSE 61; RESP 18
== END 2019-01-03 05:52 | disposition home or self-care (01) ==
LOC: FTE 04:06
DX: M25.561 Pain in right knee (principal)
CPT/HCPCS: 73562; 96372; J1885; Z7502; Z7610